=== PATIENT | female | born 1995 | race Two or more races ===

== ENCOUNTER 2022-09-27 12:00 | Emergency (ER) | payer OTHER ==
[2022-09-27 13:04] LABS: ALBUMIN/GLOBULIN RATIO 1.3 (1.0-2.2); BILIRUBIN,TOTAL 0.5 mg/dL (0.2-1.0); CALCIUM 8.6 mg/dL (8.5-10.3); CREATININE 0.5 mg/dL (0.4-1.0); POTASSIUM 3.3 mmol/L (3.5-5.0); TOTAL PROTEIN 7.1 g/dL (6.7-8.2)
[2022-09-27 13:10] LABS: EOSINOPHILS % (AUTO) 0.2 %; HCT - HEMATOCRIT 36.7 % (37.0-47.0); HGB - HEMOGLOBIN 11.9 g/dL (12.0-16.0); LYMPHOCYTES # (AUTO) 1.2 10^3/uL (1.5-3.5); LYMPHOCYTES % (AUTO) 26.5 %; MEAN CORPUSCULAR HEMOGLOBIN 28.1 pg (27.0-31.0); MEAN CORPUSCULAR HGB CONC 32.4 g/dL (32.0-36.0); MEAN CORPUSCULAR VOLUME 86.6 fL (81.0-99.0); MEAN PLATELET VOLUME 9.7 fL (7.9-10.8); MONOCYTES # (AUTO) 0.3 10^3/uL (0.0-1.0); MONOCYTES % (AUTO) 7.8 %; NEUTROPHILS # (AUTO) 2.8 10^3/uL (1.5-6.6); NEUTROPHILS % (AUTO) 64.8 %; PLT - PLATELET COUNT 248 10^3/uL (130-450); RED BLOOD COUNT 4.24 10^6/uL (4.20-5.40); WHITE BLOOD COUNT 4.4 x10^3/uL (4.8-10.8)
[2022-09-27 14:23] LABS: BILIRUBIN,URINE NEGATIVE (NEGATIVE); GLUCOSE, URINE (UA) NEGATIVE (NEGATIVE); KETONES,URINE (UA) NEGATIVE (NEGATIVE); LEUKOCYTE ESTERASE, URINE NEGATIVE (NEGATIVE); NITRITE,URINE NEGATIVE (NEGATIVE); OCCULT BLOOD,URINE MODERATE (NEGATIVE); PROTEIN,URINE NEGATIVE (NEGATIVE); UROBILINOGEN,URINE 0.2 (NORMAL) E.U./dL (NORMAL)
[2022-09-27 14:24] LABS: CLARITY,URINE HAZY (CLEAR); HCG UR QUAL NEGATIVE
[2022-09-27 14:32] LABS: BACTERIA,URINE Rare /HPF (None Seen); RBC,URINE 0-5 /HPF (0-5); SQUAMOUS EPITHELIAL CELL,UR FEW Squamous (<= Few); WBC,URINE 0-3 /HPF (0-5)
--- NOTE | 2022-09-27 15:08 | ED Physician Documentation ---
PD HPI ABD PAIN - Stated complaint Stated Complaint: ABD PX - Chief complaint Chief Complaint: Abd Pain - History obtained from History obtained from: Patient - Additional information Additional information: 27 yo with no medical hx, no abd surgeries. 2 days upper abd pain, central, radiating to back. No chg with eating. Initially with N/V, better p zofran. Now w diarrhea too. Declines pain meds on inital eval. Review of Systems Ten Systems: 10 systems reviewed and negative Constitutional: denies: Fever, Chills GI: denies: Abdominal Swelling, Hematemesis, Bloody / black stool PD PAST MEDICAL HISTORY - Present Medications Home Medications: Ambulatory Orders Medication Instructions Recorded Confirmed Ondansetron Odt [Zofran Odt] 4 mg TL Q6H PRN 09/27/22 09/27/22 Pnv No.163/Iron/Folate No.10 [Pnv 1 tab ORAL DAILY 09/27/22 09/27/22 Tabs 20-1 Tablet] - Allergies Allergies/Adverse Reactions: Allergies Allergy/AdvReac Type Severity Reaction Status Date / Time No Known Drug Allergies Allergy Verified 09/27/22 12:22 PD ED PE NORMAL - Vitals Vital signs reviewed: Yes - General General: Alert and oriented X 3, No acute distress - HEENT HEENT: PERRL, EOMI - Neck Neck: Supple, no meningeal sign, No bony TTP - Cardiac Cardiac: RRR, No murmur - Respiratory Respiratory: No respiratory distress, Clear bilaterally - Abdomen Abdomen: Normal bowel sounds, Soft, Other (Mod RUQ and epigastric pain with equivocal murphys, no low abd TTP.) - Back Back: No CVA TTP, No spinal TTP - Derm Derm: Normal color, Warm and dry - Extremities Extremities: No edema, No calf tenderness / cord - Neuro Neuro: Alert and oriented X 3, Normal speech - Psych Psych: Normal mood, Normal affect Results - Vitals Vitals: Vital Signs - 24 hr 09/27/22 09/27/22 09/27/22 12:20 15:34 17:12 Temperature 36.4 C L Heart Rate 89 73 73 Respiratory 16 16 16 Rate Blood Pressure 126/80 98/61 109/69 O2 Saturation 96 100 100 Oxygen O2 Source Room air - Labs Labs: Laboratory Tests 09/27/22 09/27/22 09/27/22 12:45 12:45 14:19 WBC 4.4 L RBC 4.24 Hgb 11.9 L Hct 36.7 L MCV 86.6 MCH 28.1 MCHC 32.4 RDW 13.0 Plt Count 248 MPV 9.7 Neut # (Auto) 2.8 Lymph # (Auto) 1.2 L Mcmullen # (Auto) 0.3 Eos # (Auto) 0.0 Baso # (Auto) 0.0 Absolute Nucleated RBC 0.00 Nucleated RBC % 0.0 Sodium 138 Potassium 3.3 L Chloride 102 Carbon Dioxide 27 Anion Gap 9.0 BUN 11 Creatinine 0.5 Estimated GFR (MDRD) 148 Glucose 117 H Calcium 8.6 Total Bilirubin 0.5 AST 12 ALT 11 Alkaline Phosphatase 52 Total Protein 7.1 Albumin 4.0 Globulin 3.1 Albumin/Globulin Ratio 1.3 Lipase 28 Urine Color YELLOW Urine Clarity HAZY Urine pH 6.0 Ur Specific [place] <=1.005 Urine Protein NEGATIVE Urine Glucose (UA) NEGATIVE Urine Ketones NEGATIVE Urine Occult Blood MODERATE H Urine Nitrite NEGATIVE Urine Bilirubin NEGATIVE Urine Urobilinogen 0.2 (NORMAL) Ur Leukocyte Esterase NEGATIVE Urine RBC 0-5 Urine WBC 0-3 Ur Squamous Epith Cells FEW Squamous Urine Bacteria Rare Ur Microscopic Review INDICATED Urine Culture Comments NOT INDICATED Urine HCG, Qual NEGATIVE PD MEDICAL DECISION MAKING - ED course ED course: 27-year-old woman presents with nonspecific upper abdominal pain, potentially most consistent with biliary colic that said with 2 days of constant pain and normal labs and liver enzymes this is less likely. CT was done showing changes more consistent with mesenteric adenitis which would also explain the diarrhea and vomiting. She was advised of the self-limited course of this but also close return precautions not only for worsening symptoms not but if not better in the next 2 days. Departure - Departure Disposition: 01 Home, Self Care Clinical Impression: Mesenteric adenitis Vomiting Qualifiers: Migraine intractability: nonintractable Diarrhea Qualifiers: Diarrhea type: infectious Qualified Code(s): A09 - Infectious gastroenteritis and colitis, unspecified Abdominal pain Qualifiers: Abdominal location: upper abdomen, unspecified Qualified Code(s): R10.10 - Upper abdominal pain, unspecified Instructions: ED Abdominal Pain Female Non-Specific Abdominal Pain Comments: As discussed, the CT scan is suggestive of mesenteric adenitis. This is a self- limited viral illness that causes pain and also the vomiting and diarrhea. I suspect you will be better by Saturday or so and would like to see you again at that time if still symptomatic and not improving. Return for new or worsening symptoms. Wash your hands well. Forms: Activity restrictions Discharge Date/Time: 09/27/22 17:12
[2022-09-27] MEDS ORDERED: iohexoL-300 100 ML VIAL ONE (15:11)
--- NOTE | 2022-09-27 16:35 | CT Report ---
PROCEDURE: ABDOMEN/PELVIS W INDICATIONS: iv only, upper abd pain CONTRAST: 10ml omnipaque 300 TECHNIQUE: After the administration of IV contrast, 5 mm thick sections acquired from the diaphragms to the symp hysis. 5 mm thick coronal and sagittal reformats were acquired. For radiation dose reduction, the f ollowing was used: automated exposure control, adjustment of mA and/or kV according to patient size. COMPARISON: None. FINDINGS: Image quality: Excellent. ABDOMEN: Lung bases: Lung bases are clear. Heart size is normal. Solid organs: Liver and spleen are normal in size and enhancement. Gallbladder is within normal [place] its Biliary system is non dilated. Pancreas enhances normally. No adrenal nodules. Kidneys demons trate normal size and enhancement, without hydronephrosis. Peritoneum and bowel: Bowel loops demonstrate normal wall thickness and caliber. Normal appendix. N o free fluid or air. Nodes and vessels: No retroperitoneal or mesenteric adenopathy by size criteria. Multiple mildly pr ominent subcentimeter mesenteric lymph nodes. Aorta and inferior vena cava are normal in size. Miscellaneous: No ventral hernias. PELVIS: Genitourinary: Bladder wall thickness is normal. Miscellaneous: No inguinal hernias or adenopathy. Bones: No suspicious bony lesions. No vertebral body compression fractures. IMPRESSION: 1. Findings suggestive of mesenteric adenitis in the appropriate clinical setting. 2. Normal appendix. Reviewed by: Mino Parker MD on 09/27/2022 4:34 PM PDT Approved by: Mino Parker MD on 09/27/2022 4:34 PM PDT Station ID: [id number]
[2022-09-27 17:13] VITALS: BP 109/69
[2022-09-27] MEDS ORDERED: iohexoL-300 100 ML VIAL IVP ONE (18:48)
== END 2022-09-27 17:12 | disposition home or self-care (01) ==
LOC: ED 12:00
DX: I88.0 Nonspecific mesenteric lymphadenitis (principal)
CPT/HCPCS: 36415; 74177; 80053; 81001; 81025; 83690; 85025; 99282; 99284; Q9967; 81003; 87086